=== PATIENT | male | born 1975 | race Hispanic/Latino ===

== ENCOUNTER 2017-01-26 21:33 | Emergency (ER) | payer OTHER ==
[~2017-01-26] VITALS: Ht 167.6 cm; Wt 127.3 kg
[~2017-01-26 21:33] MED LIST: ALBU8.5H4 INHALATION; ASPI-973 PO; ATRV10T PO; CLOP75TA28 PO; CLOP75TA3 PO; METO25TA6 PO
[2017-01-26 21:41] VITALS: BP 149/104; PULSE 88; RESP 16; O2SAT 97
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
[2017-01-26] MEDS ORDERED: _Naloxone 2 mg/2 mL 2 Syringe Kit (NASAL USE) NASAL PRN (22:55)
[2017-01-26] MEDS ORDERED: BUPR1TAB36 SL (22:58)
[2017-01-26 23:20] VITALS: BP 160/112; PULSE 86; RESP 22; O2SAT 98
== END 2017-01-26 23:17 | disposition home or self-care (01) ==
LOC: SED 21:33
DX: F11.20 Opioid dependence, uncomplicated (principal); E11.9 Type 2 diabetes mellitus without complications; I10 Essential (primary) hypertension; I25.2 Old myocardial infarction; I25.10 Atherosclerotic heart disease of native coronary artery without angina pectoris; Z79.82 Long term (current) use of aspirin; Z95.5 Presence of coronary angioplasty implant and graft